=== PATIENT | male | born 1955 | race Caucasian/White ===

== ENCOUNTER 2022-11-29 06:57 | Observation (INO) | payer OTHER ==
[2022-11-29 07:24] VITALS: TEMP 97.6; BMI 25.7
[2022-11-29] MEDS ORDERED: ASPIRIN 81 MG CHEWABLE TABLETS PO ONE (07:24)
[2022-11-29] MEDS ORDERED: SODIUM CHLORIDE 1,000 ML IV SCH (07:30)
[2022-11-29] MEDS ORDERED: ASPIRIN 81 MG CHEWABLE TABLETS ONE (07:49)
[2022-11-29 08:18] LABS: INR 1.01 (0.83-1.09); PROTHROMBIN TIME (PATIENT) 11.6 SEC (9.7-13.0)
[2022-11-29 08:21] LABS: ACTIVATED PTT 28.6 SECONDS (25.2-36.5)
[2022-11-29 08:42] LABS: BASO % 0.6 % (0-2.0); EOS % 1.6 % (0-4.5); HEMATOCRIT 41.6 % (35.4-49); HEMOGLOBIN 13.9 GM/dL (11.7-16.9); LYMPH % 35.6 % (8-40); MCH 27.5 pg (25.7-33.7); MCHC 33.4 g/dl (32.0-35.9); MEAN CELL VOLUME 82.4 fl (80-96); MEAN PLT VOLUME 9.1 fl (7.5-11.1); MONO % 8.6 % (3.8-10.2); NEUT % 53.6 % (42.8-82.8); PLATELET COUNT 187 10^3/uL (134-434); RBC 5.05 M/mm3 (4.00-5.60); RDW 14.6 % (11.9-15.9); WHITE BLOOD COUNT 5.6 K/mm3 (4.0-10.0)
[2022-11-29 08:54] LABS: ALBUMIN 3.8 g/dl (3.4-5.0); BLOOD UREA NITROGEN 10.6 mg/dL (7-18); CALCIUM 9.3 mg/dL (8.5-10.1)
[2022-11-29 08:57] LABS: CREATININE 0.8 mg/dL (0.55-1.3)
[2022-11-29 08:58] LABS: BILIRUBIN,TOTAL 0.7 mg/dL (0.2-1)
[2022-11-29 08:59] LABS: TOT PROT 7.6 g/dl (6.4-8.2)
[2022-11-29] MEDS ORDERED: ATORVASTATIN CA 80 MG TABLET (FP) PO ONE (12:31)
[2022-11-29 15:39] VITALS: BP 173/67; PULSE 54; RESP 20
[2022-11-30] MEDS ORDERED: ASPIRIN COATED 81 MG TABLET.EC PO SCH (10:00)
== END 2022-11-29 16:42 | disposition short-term general hospital (02) ==
LOC: JER 06:57 → JERBED 09:24
PROVIDERS: ADMIT Internal Medicine; ATTEND Internal Medicine
PROC: 3E0337Z Introduction of Electrolytic and Water Balance Substance into Peripheral Vein, Percutaneous Approach (ICD-10-PCS; principal; 2022-11-29)
DX: E11.9 Type 2 diabetes mellitus without complications (principal); E78.5 Hyperlipidemia, unspecified; I10 Essential (primary) hypertension
CPT/HCPCS: 36415; 70450-TC; 70496-TC; 70544-TC; 70547-TC; 70551-TC; 80053; 80061; 82550; 82962; 83036; 84443; 84484; 85025; 85610; 85730; 93005; 93010; 93880-TC; 96360; 99285-25; C9803-CS; G0378; Q9967; U0003; U0005